=== PATIENT | female | born 1990 | race African-American/Black ===

== ENCOUNTER 2020-02-20 11:30 | Emergency (ER) | payer OTHER, SELFPAY ==
[2020-02-20 11:42] VITALS: BP 131/96; PULSE 101; RESP 14; TEMP 36.3; O2SAT 100
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
== END 2020-02-20 13:00 | disposition home or self-care (01) ==
LOC: ANHED 12:50
PROVIDERS: Emergency Provider Emergency Medicine
DX: T14.8XXA Other injury of unspecified body region, initial encounter (principal); V43.52XA Car driver injured in collision with other type car in traffic accident, initial encounter
CPT/HCPCS: 99282

== ENCOUNTER 2021-09-13 09:17 | Emergency (ER) | payer OTHER, SELFPAY ==
--- NOTE | ~2021-09-13 | XR_ITS ---
EXAMINATION: XR chest 2V DATE: 09/13/2021 09:43 INDICATION: Shortness of breath. Chest pain. TECHNIQUE: PA and lateral views of the chest were obtained. COMPARISON: None FINDINGS: The lungs are clear with no focal airspace opacities, pulmonary edema, pleural effusion or pneumothor ax. The cardiomediastinal silhouette is normal. Visualized bones and soft tissues are unremarkable. IMPRESSION: 1. Normal chest radiograph. Reviewed, dictated and finalized at location B. IMPRESSION: 1. Normal chest radiograph.
[2021-09-13 09:22] VITALS: BP 137/95; PULSE 95; RESP 20; O2SAT 100
--- NOTE | 2021-09-13 09:26 | ECG_ITS ---
Measurements Intervals [place] Rate: 95 P: 74 CT: 171 QRS: 92 QRSD: 92 T: 51 QT: 357 QTc: 449 Interpretive Statements SINUS RHYTHM BORDERLINE RIGHT AXIS DEVIATION [QRS AXIS > 90] NO PREVIOUS ECG AVAILABLE FOR COMPARISON Electronically Signed On 09-13-2021 16:47:01 CDT by Mel Washington M.D.
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
[2021-09-13] MEDS: SODIUM CHLORIDE 0.9% IV 1,000 ML 999 ML IV CONT (09:52)
[2021-09-13 10:01] LABS: Basophils Percent Auto 0.4 % (0.2-1.2); Eosinophils Absolute Auto 0.1 K/mm3 (0-0.3); Eosinophils Percent Auto 2.6 % (0-4.4); Hematocrit 39.8 % (37.0-47.0); Hemoglobin 12.8 g/dL (12.0-15.0); Immature Granulocyte Absolute 0.01 K/mm3 (0.00-0.031); Immature Granulocyte Percent A 0.2 % (0-0.5); Lymphocytes Absolute Auto 2.24 K/mm3 (0.9-3.2); Mean Corpuscular HGB Conc 32.2 g/dl (32-36); Mean Corpuscular Hemoglobin 26.1 pg (26-34); Mean Corpuscular Volume 81.1 fl (80-100); Mean Platelet Volume 10.5 fl (7.4-10.4); Monocytes Absolute Auto 0.3 K/mm3 (0.1-0.6); Neutrophils Absolute Auto 1.9 K/mm3 (1.3-6.7); Neutrophils Percent Auto 40.8 % (45.5-73.1); Platelet Count Result 211 k/mm3 (150-375); Red Blood Count 4.91 M/mm3 (4.2-5.4); Red Cell Distribution Width 13.7 % (11.5-14.5); White Blood Count 4.6 K/mm3 (4.5-10.0)
[2021-09-13 10:15] LABS: Alanine Aminotransferase 15 U/L (4-35); Albumin Level 4.7 g/dL (3.5-5.1); Alkaline Phosphatase 54 U/L (38-126); Anion Gap 9 mmol/L (8-16); Aspartate Amino Transferase 35 U/L (14-36); Bilirubin,Total 0.4 mg/dL (0.2-1.3); Blood Urea Nitrogen 15 mg/dL (7-17); Carbon Dioxide 25 mmol/L (22-30); Chloride 102 mmol/L (98-107); Estimated CRCL calculation 87 ml/min; Estimated Glomerular Filt Rate > 60; Glucose 87 mg/dL (65-110); Magnesium 1.8 mg/dL (1.6-2.3); Potassium 3.9 mmol/L (3.4-5.0); Sodium 136 mmol/L (137-145)
[2021-09-13 10:18] LABS: Add Urine Microscopic? YES; Appearance Urine Cloudy (Clear); Bilirubin Urine Negative (Negative); Blood Urine Negative (Negative); Color Urine Yellow (Yellow); Glucose Urine UA Negative (Negative); Ketones Urine Negative (Negative); Leukocyte Esterase Ur Trace LEU/UL (Negative); Mucus Urine Rare /lpf; Nitrate Urine Negative (Negative); Protein Urine Negative (Negative); Specific Grav Ur 1.024 (1.001-1.035); Squamous Epithelial Cell Urine Many /hpf (Few); Urobilinogen Urine Negative mg/dL (<2.0)
[2021-09-13 10:22] LABS: Troponin I < 0.012 ng/mL (0.000-0.034)
[2021-09-13 10:50] LABS: D Dimer < 0.22 ug/mL (<0.48)
[2021-09-13 11:35] VITALS: BP 123/80; PULSE 78; RESP 18; O2SAT 98
== END 2021-09-13 11:36 | disposition home or self-care (01) ==
PROVIDERS: Emergency Provider Nurse Practitioner Family
DX: R06.02 Shortness of breath (principal)
CPT/HCPCS: 36415; 71046; 80053; 81001; 83735; 84484; 85025; 85380; 87086; 93005; 96360; 96361; 99284; J7030

== ENCOUNTER 2023-10-25 12:42 | Outpatient (CLI) | payer OTHER, SELFPAY ==
[2023-10-25 19:13] LABS: Basophils Percent Auto 0.7 % (0.2-1.2); Eosinophils Absolute Auto 0.1 K/mm3 (0-0.3); Eosinophils Percent Auto 1.7 % (0-4.4); Hemoglobin 12.2 g/dL (12.0-15.0); Immature Granulocyte Absolute 0.01 K/mm3 (0.00-0.031); Immature Granulocyte Percent A 0.2 % (0-0.5); Lymphocytes Absolute Auto 1.99 K/mm3 (0.9-3.2); Lymphocytes Percent Auto 48.3 % (18.3-44.2); Mean Corpuscular HGB Conc 31.3 g/dl (32-36); Mean Corpuscular Hemoglobin 25.7 pg (26-34); Mean Corpuscular Volume 82.3 fl (80-100); Mean Platelet Volume 11.2 fl (7.4-10.4); Monocytes Absolute Auto 0.3 K/mm3 (0.1-0.6); Neutrophils Absolute Auto 1.7 K/mm3 (1.3-6.7); Neutrophils Percent Auto 41.1 % (45.5-73.1); Platelet Count Result 234 k/mm3 (150-375); Red Blood Count 4.74 M/mm3 (4.2-5.4); Red Cell Distribution Width 13.8 % (11.5-14.5); White Blood Count 4.1 K/mm3 (4.5-10.0)
[2023-10-25 19:47] LABS: Alanine Aminotransferase 18 U/L (6-35); Albumin Level 4.3 g/dL (3.5-5.1); Alkaline Phosphatase 60 U/L (38-126); Anion Gap 4 mmol/L (4-12); Aspartate Amino Transferase 30 U/L (14-36); Bilirubin,Total 0.4 mg/dL (0.2-1.3); Blood Urea Nitrogen 9 mg/dL (7-17); Calcium 9.2 mg/dL (8.4-10.2); Carbon Dioxide 27 mmol/L (22-30); Chloride 106 mmol/L (98-107); Cholesterol 182 mg/dL (0-200); Estimated Glomerular Filt Rate > 60; Glucose 95 mg/dL (65-110); HDL Direct 72 mg/dL; Potassium 4.3 mmol/L (3.4-5.0); Sodium 137 mmol/L (137-145); Triglycerides 67 mg/dL (<150)
[2023-10-25 19:58] LABS: LDL Cholesterol Direct 80 mg/dL
== END 2023-10-25 12:43 | disposition home or self-care (01) ==
LOC: ANHGOSHLAB 12:43
PROVIDERS: PCP Internal Medicine; Visit Provider Nurse Practitioner
DX: Z13.228 Encounter for screening for other metabolic disorders (principal); Z13.220 Encounter for screening for lipoid disorders
CPT/HCPCS: 36415; 80053; 80061; 85025

== ENCOUNTER 2024-07-24 09:15 | Outpatient (CLI) | payer OTHER, SELFPAY ==
--- NOTE | ~2024-07-24 | XR_ITS ---
EXAMINATION: XR chest 2V DATE: 07/24/2024 09:32 INDICATION: Dyspnea, unspecified. TECHNIQUE: Frontal and lateral views of the chest were obtained. COMPARISON: Chest 2 views 09/13/2021 FINDINGS: There is no pneumonia, pleural effusion, or pneumothorax. The heart size is normal. IMPRESSION: 1. No acute cardiopulmonary disease. Reviewed, dictated and finalized at location A. 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
== END 2024-07-24 09:16 | disposition home or self-care (01) ==
PROVIDERS: PCP Nurse Practitioner; Visit Provider Nurse Practitioner
DX: R06.00 Dyspnea, unspecified (principal)
CPT/HCPCS: 71046

== ENCOUNTER 2024-09-03 14:03 | Outpatient (CLI) | payer OTHER, SELFPAY ==
--- NOTE | ~2024-09-03 | XR_ITS ---
XR shoulder RT min 2V 09/03/2024 14:25 Indication: Right shoulder pain Procedure: 4 views right shoulder Comparison: No prior studies for comparison. Findings: There is anatomic alignment. No fracture, subluxation or dislocation. No soft tissue abnorm ality. No foreign bodies. Impression: 1: No significant bone or joint abnormality. Reviewed, dictated and finalized at location A. Impression: 1: No significant bone or joint abnormality.
--- NOTE | ~2024-09-03 | XR_ITS ---
XR cervical spine min 6V 09/03/2024 14:25 Indication: Cervical spine pain. Radiculopathy. Procedure: 8 views of the cervical spine Comparison: No prior studies for comparison. Findings: There is reversal of cervical lordosis in neutral position, likely due to muscle spasm. Rudolph tebral body heights are maintained. No significant disc narrowing. No alteration of alignment with fl exion/extension. No evidence for perched facet. No significant degenerative change. Impression: 1: No significant abnormality of the cervical spine. Reviewed, dictated and finalized at location A. Impression: 1: No significant abnormality of the cervical spine.
== END 2024-09-03 14:04 | disposition home or self-care (01) ==
PROVIDERS: PCP Nurse Practitioner; Visit Provider Nurse Practitioner
DX: M25.511 Pain in right shoulder (principal); G89.29 Other chronic pain; M54.12 Radiculopathy, cervical region
CPT/HCPCS: 72052; 73030

== ENCOUNTER 2024-10-30 09:08 | Outpatient (CLI) | payer OTHER, SELFPAY ==
[2024-10-30 11:43] LABS: Basophils Percent Auto 0.4 % (0.2-1.2); Eosinophils Absolute Auto 0.1 K/mm3 (0-0.3); Eosinophils Percent Auto 1.8 % (0-4.4); Hematocrit 38.9 % (37.0-47.0); Hemoglobin 12.5 g/dL (12.0-15.0); Immature Granulocyte Absolute 0.02 K/mm3 (0.00-0.031); Immature Granulocyte Percent A 0.4 % (0-0.5); Lymphocytes Percent Auto 44.1 % (18.3-44.2); Mean Corpuscular HGB Conc 32.1 g/dl (32-36); Mean Corpuscular Hemoglobin 26.5 pg (26-34); Mean Corpuscular Volume 82.4 fl (80-100); Mean Platelet Volume 11.9 fl (7.4-10.4); Monocytes Absolute Auto 0.5 K/mm3 (0.1-0.6); Monocytes Percent Auto 9.2 % (2.6-8.5); Neutrophils Absolute Auto 2.2 K/mm3 (1.3-6.7); Neutrophils Percent Auto 44.1 % (45.5-73.1); Platelet Count Result 227 k/mm3 (150-375); Red Blood Count 4.72 M/mm3 (4.2-5.4); Red Cell Distribution Width 13.9 % (11.5-14.5)
[2024-10-30 11:57] LABS: Alanine Aminotransferase 20 U/L (6-35); Albumin Level 4.4 g/dL (3.5-5.1); Alkaline Phosphatase 39 U/L (38-126); Anion Gap 9 mmol/L (4-12); Aspartate Amino Transferase 39 U/L (14-36); Bilirubin,Total 0.3 mg/dL (0.2-1.3); Blood Urea Nitrogen 8 mg/dL (7-17); Calcium 9.3 mg/dL (8.4-10.2); Carbon Dioxide 24 mmol/L (22-30); Chloride 106 mmol/L (98-107); Cholesterol 174 mg/dL (0-200); Estimated Glomerular Filt Rate > 60; Glucose 95 mg/dL (65-110); HDL Direct 66 mg/dL; Potassium 4.8 mmol/L (3.4-5.0); Sodium 139 mmol/L (137-145); Triglycerides 77 mg/dL (<150)
[2024-10-30 12:08] LABS: LDL Cholesterol Direct 62 mg/dL
== END 2024-10-30 09:09 | disposition home or self-care (01) ==
LOC: ANHGOSHLAB 09:09
PROVIDERS: PCP Nurse Practitioner; Visit Provider Nurse Practitioner
DX: Z13.220 Encounter for screening for lipoid disorders (principal); Z13.228 Encounter for screening for other metabolic disorders
CPT/HCPCS: 36415; 80053; 80061; 85025

== ENCOUNTER 2025-03-12 12:15 | Emergency (ER) | payer OTHER, SELFPAY ==
--- NOTE | ~2025-03-12 | US_ITS ---
EXAMINATION: US OB <=14 wk fetus w TV, 03/12/2025 16:00 CDT HISTORY: vaginal bleeding/ early Comparison: None Technique: Arzate-scale and color Doppler images were obtained FINDINGS: Uterus anteverted 8.2 x 4.5 x 4 cm, within the uterine fundus towards the right probable fibroid 3.7 x 2.9 cm. Endometrium 4 mm, there is no intrauterine gestational sac identified. Right ovary 2.4 x 2.5 x 1.7 cm, no adnexal mass, normal flow. Left ovary 2.1 x 2.2 x 2.2 cm, no adnexal mass, normal flow. Minimal free fluid. IMPRESSION: There is no intrauterine gestational sac identified. No adnexal mass to suggest ectopic although this cannot be excluded. Serial beta-hCG and follow-up is recommended Reviewed, dictated and finalized at location P. IMPRESSION: There is no intrauterine gestational sac identified. No adnexal mas s to suggest ectopic although this cannot be excluded. Serial beta-hC G and follow-up is recommended
--- OUTSIDE RECORDS SUMMARY | 2025-03-12 12:18 | XMS_ITS | Clinical Summary ---
Author Organization [facility] Address [facility] [place] [address] Care Team Providers Care Shooter Helper Name Role Phone Krystina Pathak MD Primary Care Provider [phone] Allergies Active Allergy Reactions Criticality Noted Date Comments Mushrooms Itching,Rash,Swelling Low 08/12/2021 Medications No known medications Active Problems No known active problems Immunizations Immunization Administration Dates Next Due MMR (MMRII) 08/27/2014,07/22/2014 Td, Adsorbed, Preservative F ree, Adult Use, Lf Unspecified 07/22/2014 Tdap (Adacel) 08/12/2021 Social History Tobacco Use Types Packs/Day Years Used Date Smoking Tobacco: Never Smokeless Tobacco: Never PHQ-2 Answer Date Recorded PHQ-2 Score - If the patient scores above 3, please move on to questions 3-9 0 08/12/2021 Comments No Sex and Gender Information Value Date Recorded Sex Assigned at Not on file Legal Sex Female 1:52 PM CDT Gender Identity Not on file Sexual Orientation Not on file Last Filed Vital Signs Vital Sign Reading Time Taken Comments Blood Pressure 113/76 08/12/2021 2:19 PM LEAD DATABASE ADMINISTRATOR Pulse 89 08/12/2021 2:19 PM LEAD DATABASE ADMINISTRATOR Temperature 36.7 C (98 F) 08/12/2021 2:19 PM LEAD DATABASE ADMINISTRATOR Respiratory Rate - - Oxygen Saturation 100% 08/12/2021 2:19 PM LEAD DATABASE ADMINISTRATOR Inhaled Oxygen Concentration - - Weight 67.6 kg (149 lb) 08/12/2021 2:19 PM LEAD DATABASE ADMINISTRATOR Height 152.4 cm (5') 08/12/2021 2:19 PM LEAD DATABASE ADMINISTRATOR Body Mass Index 29.1 08/12/2021 2:19 PM LEAD DATABASE ADMINISTRATOR Plan of Treatment Health Maintenance Due Date Last Done Comments Cervical Cancer Screening Pa p Smear (Age 30 to 64) Every 3 Years 1992 Hepatitis B Vaccines (1 of 3 - 19+ 3-dose series) 12/13/2011 HPV Vaccines (1 - 3-dose SCD M series) 12/13/2019 Annual Physical 08/12/2022 08/12/2021 Cervical Cancer Screening Pa p with HPV Testing (Age 30 to 64) Every 5 Years 2022 Cervical Cancer Screening wi th HPV 2022 COVID-19 Vaccine (2 - 2024-2 6 season) 2025 02/10/2021 DTaP, Tdap and Td Vaccines ( 2 - Td or Tdap) 08/13/2031 08/12/2021, 07/22/2014 Hepatitis C Completed 08/26/2021 Meningococcal B Vaccine Aged Out No l onger eligible based on patient's age to complete this topic Meningococcal Vaccine Aged Out No bossman amanda eligible based on patient's age to complete this topic Pneumococcal Vaccine: Pediatrics (0 to 5 Years) and At-Risk Patients (6 to 49 Years) Aged Out No longer eligible b ased on patient's age to complete this topic RSV Immunizations Under 20 Months Aged Out No longer eligible b ased on patient's age to complete this topic Procedures Procedure Name Priority Date/Time Associated Diagnosis Comments HEPATITIS C ANTIBODY Routine 08/26/2021 9:01 AM CDT Encounter for hepatitis C screening test for low risk patient from Last 3 Months or Most Recently Relevant to Health Maintenance Results * HEPATITIS C ANTIBODY (08/26/2021 9:01 AM CDT) HEPATITIS C AB NON-REACTI VE NON-REACT BARRY 08/26/2021 10:56 PM CDT [facility] Comment: ANTIBODIES TO HCV NOT DETECTED. DOES NOT EXCLUDE THE POSSIBILITY OF EXPOSURE TO HCV. 08/26/2021 9:01 AM CDT Krystina Pathak MD LABORATORY Final Result [facility] [address] [place] [id number], [id number] from Last 3 Months or Most Recently Relevant to Health Maintenance Insurance [facility] Care Teams Shooter Helper Relationship Specialty Start Date End Date Krystina Pathak MD [facility] [place] [address] PCP - General FAMILY PRACTICE 08/12/21
--- OUTSIDE RECORDS SUMMARY | 2025-03-12 12:19 | XMS_ITS | Encounter Summary ---
Author Organization [facility] Address [facility] [place] [address] Care Team Providers Care Resource Development Manager Name Role Phone Marcus Allen MD Primary Care Provider [phone] Krystina Pathak MD Primary Care Provider [phone] Encounter Details Date Type Department Care Team (Late st Contact Info) Description 10/01/2019 [facility] Patient Accounts [address] [place] [address] [facility] patient account balance Social History Tobacco Use Types Packs/Day Years Used Date Smoking Tobacco: Never Assessed Comments Unknown Sex and Gender Information Value Date Recorded Sex Assigned at Not on file Legal Sex Female 1:52 PM CDT Gender Identity Not on file Sexual Orientation Not on file documented as of this encounter Plan of Treatment Not on file documented as of this encounter Visit Diagnoses Not on filedocumented in this encounter Care Teams Resource Development Manager Relationship Specialty Start Date End Date Marcus Allen MD [address] [place] [address] [address] [place] [address] PCP - General FAMILY PRACTICE 04/11/19 08/11/21 Krystina Pathak MD [address] [place] [id number] PCP - General FAMILY PRACTICE 08/12/21 documented as of this encounter
[2025-03-12 12:34] VITALS: BP 130/88; PULSE 83; RESP 18; TEMP 36.1; O2SAT 100
--- OUTSIDE RECORDS SUMMARY | 2025-03-12 14:02 | XMS_ITS | Encounter Summary ---
Author Organization [facility] Address [facility] [place] [address] Care Team Providers Care Manager Biostatistics Name Role Phone Marcus Allen MD Primary Care Provider [phone] Krystina Pathak MD Primary Care Provider [phone] Encounter Details Date Type Department Care Team (Late st Contact Info) Description 10/01/2019 [facility][Note 3] Patient Accounts [address] [place] [address] [facility] patient account balance Social History [...] on filedocumented in this encounter Care Teams Manager Biostatistics Relationship Specialty Start Date End Date Marcus Allen MD [address] [place] [address] [address] [place] [address] PCP - General FAMILY PRACTICE 04/11/19 08/11/21 Krystina Pathak MD [address] [place] [id number] PCP - General FAMILY PRACTICE 08/12/21 documented as of this encounter
--- OUTSIDE RECORDS SUMMARY | 2025-03-12 14:02 | XMS_ITS | Clinical Summary ---
Author Organization [facility] Address [facility] [place] [address] Care Team Providers Care Call Box Wirer Name Role Phone Krystina Pathak MD Primary Care Provider [phone] Allergies Active Allergy Reactions Criticality Noted Date [...] Comments Blood Pressure 113/76 08/12/2021 2:19 PM GRAIN BLENDER Pulse 89 08/12/2021 2:19 PM GRAIN BLENDER Temperature 36.7 C (98 F) 08/12/2021 2:19 PM GRAIN BLENDER Respiratory Rate - - Oxygen Saturation 100% 08/12/2021 2:19 PM GRAIN BLENDER Inhaled Oxygen Concentration - - Weight 67.6 kg (149 lb) 08/12/2021 2:19 PM GRAIN BLENDER Height 152.4 cm (5') 08/12/2021 2:19 PM GRAIN BLENDER Body Mass Index 29.1 08/12/2021 2:19 PM GRAIN BLENDER Plan of Treatment Health Maintenance Due Date [...] VE NON-REACT BARRY 08/26/2021 10:[address] [facility] Comment: ANTIBODIES TO HCV NOT DETECTED. DOES NOT EXCLUDE THE POSSIBILITY OF EXPOSURE TO HCV. 08/26/2021 9:01 AM CDT Krystina Pathak MD LABORATORY Final Result [facility] [address] [place] [id number], [id number] from Last 3 Months or Most Recently Relevant to Health Maintenance Insurance [facility] Care Teams Call Box Wirer Relationship Specialty Start Date End Date Krystina Pathak MD [facility] [place] [address] PCP - General FAMILY PRACTICE 08/12/21
[2025-03-12 14:38] LABS: BEDSIDEPREGUCG Negative (Negative)
[2025-03-12 14:47] LABS: Hematocrit 40.6 % (37.0-47.0); Hemoglobin 12.5 g/dL (12.0-15.0); Immature Granulocyte Percent A 0.3 % (0-0.5); Lymphocytes Absolute Auto 1.54 K/mm3 (0.9-3.2); Mean Corpuscular HGB Conc 30.8 g/dl (32-36); Mean Corpuscular Hemoglobin 25.1 pg (26-34); Mean Corpuscular Volume 81.5 fl (80-100); Nucleated Red Blood Cells Absolute Auto 0.000 K/mm3 (0.0-0.012); Nucleated Red Blood Cells Perc 0.0 % (0.0-0.2); Platelet Count Result 236 k/mm3 (150-375); Red Blood Count 4.98 M/mm3 (4.2-5.4); White Blood Count 5.8 K/mm3 (4.5-10.0)
[2025-03-12 15:00] LABS: Alanine Aminotransferase 14 U/L (6-35); Albumin Level 4.5 g/dL (3.5-5.1); Alkaline Phosphatase 59 U/L (38-126); Anion Gap 9 mmol/L (4-12); Aspartate Amino Transferase 23 U/L (14-36); Bilirubin,Total 0.2 mg/dL (0.2-1.3); Blood Urea Nitrogen 9 mg/dL (7-17); Calcium 9.1 mg/dL (8.4-10.2); Carbon Dioxide 23 mmol/L (22-30); Chloride 105 mmol/L (98-107); Estimated CRCL calculation 90 ml/min; Estimated Glomerular Filt Rate > 60; Glucose 106 mg/dL (65-110); Potassium 4.5 mmol/L (3.4-5.0); Sodium 137 mmol/L (137-145); Total Protein 8.0 g/dL (6.3-8.2)
[2025-03-12 15:08] LABS: Add Urine Microscopic? YES; Appearance Urine Clear (Clear); Glucose Urine UA Negative (Negative); Leukocyte Esterase Ur 1+ LEU/UL (Negative); Need Manual Microscopic Reviewed; Nitrate Urine Negative (Negative); Non Pathogenic Casts 0-2; Specific Grav Ur 1.019 (1.001-1.035)
[2025-03-12 15:10] LABS: INR 1.0; Prothrombin Time 12.8 Seconds (11.1-14.7)
[2025-03-12 15:11] LABS: Partial Thromboplastin Time 23.1 Seconds (22.3-36.8)
--- NOTE | 2025-03-12 15:11 | ED.GENADULT ---
HPI - General Adult General Chief complaint: Vaginal Bleeding Stated complaint: vag bleeding, Time Seen by Provider: 03/12/25 13:49 History of Present Illness HPI narrative: Gianna Leon is a 34 y/o female whose LMP was Feb 03, she took a test yesterday and it was positive and she was spotting yesterday and started to have heavier vaginal bleeding today with abdominal crampaing and some low back pain. States she had some nausea this morning no vomiting Related Data Home Medications ?Medication ?Instructions ?Recorded ?Confirmed ?Last Taken ?Type multivitamin (Daily Multi-Vitamin 1 tablet PO DAILY 04/04/24 10/30/24 Unknown History tablet) Allergies Allergy/AdvReac Type Severity Reaction Status Date / Time No Known Allergies Allergy Verified 03/12/25 12:33 Review of Systems Review of Systems: All systems reviewed & are unremarkable except as noted in HPI and below PMFSH Past Medical History Medical History Right foot sprain Family History Family History Father Diabetes mellitus Mother Hypertension Grandparent Hypertension Social History Social History Smoking status: Never smoker Second hand tobacco smoke exposure: No Alcohol intake: never Substance use: never Do You Feel Safe in your Home?: Yes Lack of Transportation: No Lack of Food: Never True Current Housing: I Have Housing Concerned About Future Housing: No Difficulty Paying Gas/Electric Bills: No Difficulty Paying for Meds: No Currently Unemployed: No Education: Bachelor's Degree Difficulty w/ Childcare or Family Care: No Exam Narrative: GENERAL: Well-appearing, well-nourished, and in no acute distress. HEAD: Normocephalic, atraumatic. EYES: PERRLA and EOMI. ENT: Nares clear, no rhinorrhea or epistaxis. Mucous membranes moist. Oropharynx without tonsillar hypertrophy exudate or other lesions. NECK: Supple. No adenopathy or masses. No carotid bruits or JVD CHEST: Clear to auscultation. No respiratory distress. No wheezes rales or rhonchi HEART: Regular rate and rhythm. No murmur heard. Normal peripheral pulses. ABDOMEN: Soft, nontender, nondistended, normal active bowel sounds. EXTREMITIES: Normal range of motion. No edema. SKIN: Warm, dry, no rash. NEURO: No focal deficits. Alert and oriented x3. PSYCH: Normal mood and affect. Course Vital Signs Vital signs: Vital Signs Temperature 36.1 C L 03/12/25 12:34 Pulse Rate 83 03/12/25 12:34 Respiratory Rate 18 03/12/25 12:34 Blood Pressure 130/88 03/12/25 12:34 Pulse Oximetry 100 03/12/25 12:34 Oxygen Delivery Room Air 03/12/25 12:34 Temperature 36.1 C L 03/12/25 12:34 Pulse Rate 83 03/12/25 12:34 Respiratory Rate 18 03/12/25 12:34 Blood Pressure 130/88 03/12/25 12:34 Pulse Oximetry 100 03/12/25 12:34 Oxygen Delivery Room Air 03/12/25 12:34 Medical Decision Making MDM Narrative Medical decision making narrative: 34-year-old female who took a positive test yesterday and started to have spotting yesterday and bleeding today. Complains of lower abdominal cramping low back pain. Denies urinary symptoms. concern for ectopic, menses, threatened miscarriage plan to check labs and ultrasound pelvic CBC no leukocytosis, hemodynamically stable her coags unremarkable CMP unremarkable with UA 3+ blood urine is negative beta quant is a 7.15 Transvaginal ultrasound: There is no intrauterine gestational sac identified. No adnexal mass to suggest ectopic although this cannot be excluded. Serial beta-hCG and follow-up is recommended Patient updated on lab results and ultrasound findings. I let her know that her urine was negative here however she does have a very low beta quant in the the vaginal bleeding and possible early difficult to tell if this is truly a that will continue or if she is actively miscarrying being that she is at best around 4 weeks . For the ultrasound was not able to visualize an intrauterine gestational sac however it did not suggest an ectopic either likely because she is so early. I explained to her that she will need to call her OBGYN tomorrow to follow-up for repeat beta quant to see which direction this will go. However the latter now that the level that the beta quant was today is is likely not a viable . Better now the rest of an ectopic a and that if she does develop any new or worsening symptoms severe pain feeling like something isn't right then she is to return to the emergency room. She is agreeable to this plan denies anything further at this time. Medical Records Medical records reviewed: Yes I reviewed the external patient's medical records. Vital Signs Vital Signs: Vital Signs Temperature 36.1 C L 03/12/25 12:34 Pulse Rate 83 03/12/25 12:34 Respiratory Rate 18 03/12/25 12:34 Blood Pressure 130/88 03/12/25 12:34 Pulse Oximetry 100 03/12/25 12:34 Oxygen Delivery Room Air 03/12/25 12:34 Temperature 36.1 C L 03/12/25 12:34 Pulse Rate 83 03/12/25 12:34 Respiratory Rate 18 03/12/25 12:34 Blood Pressure 130/88 03/12/25 12:34 Pulse Oximetry 100 03/12/25 12:34 Oxygen Delivery Room Air 03/12/25 12:34 Vitals reviewed Lab Data Lab results reviewed: Yes I reviewed the patient's lab results. 03/12/25 14:35 03/12/25 14:36 Labs: Lab Results 03/12/25 03/12/25 03/12/25 Range/Units 14:15 14:35 14:36 WBC 5.8 (4.5-10.0) K/mm3 RBC 4.98 (4.2-5.4) M/mm3 Hgb 12.5 (12.0-15.0) g/dL Hct 40.6 (37.0-47.0) % MCV 81.5 (80-100) fl MCH 25.1 L (26-34) pg MCHC 30.8 L (32-36) g/dl RDW 13.9 (11.5-14.5) % Plt Count 236 (150-375) k/mm3 MPV 10.9 H (7.4-10.4) fl Immature Gran % (Auto) 0.3 (0-0.5) % Neut % (Auto) 66.0 (45.5-73.1) % Lymph % (Auto) 26.4 (18.3-44.2) % [place] % (Auto) 6.3 (2.6-8.5) % Eos % (Auto) 0.7 (0-4.4) % Baso % (Auto) 0.3 (0.2-1.2) % Lymph # (Auto) 1.54 (0.9-3.2) K/mm3 [place] # (Auto) 0.4 (0.1-0.6) K/mm3 Eos # (Auto) 0.0 (0-0.3) K/mm3 Baso # (Auto) 0.0 (0.0-0.1) K/mm3 Abs Immat Gran (auto) 0.02 (0.00-0.031) K/mm3 Absolute Neuts (auto) 3.8 (1.3-6.7) K/mm3 Absolute Nucleated RBC 0.000 (0.0-0.012) K/mm3 Nucleated RBC % 0.0 (0.0-0.2) % PT 12.8 (11.1-14.7) Seconds INR 1.0 APTT 23.1 (22.3-36.8) Seconds Sodium 137 (137-145) mmol/L Potassium 4.5 (3.4-5.0) mmol/L Chloride 105 (98-107) mmol/L Carbon Dioxide 23 (22-30) mmol/L Anion Gap 9 (4-12) mmol/L BUN 9 (7-17) mg/dL Creatinine 0.69 L (0.7-1.0) mg/dL Estim Creat Clear Calc 90 ml/min Estimated GFR > 60 (59 - ) Glucose 106 (65-110) mg/dL Calcium 9.1 (8.4-10.2) mg/dL Total Bilirubin 0.2 (0.2-1.3) mg/dL AST 23 (14-36) U/L ALT 14 (6-35) U/L Alkaline Phosphatase 59 (38-126) U/L Total Protein 8.0 (6.3-8.2) g/dL Albumin 4.5 (3.5-5.1) g/dL Beta HCG, Quant 7.15 mIU/ML Urine Color Yellow (Yellow) Urine Appearance Clear (Clear) Urine pH 5.0 (5.0-9.0) Ur Specific [place] 1.019 (1.001-1.035) Urine Protein Negative (Negative) mg/dL Urine Glucose (UA) Negative (Negative) mg/dL Urine Ketones Negative (Negative) mg/dL Ur Blood (Man) 3+ H (Negative) Urine Nitrate Negative (Negative) Urine Bilirubin Negative (Negative) Urine Urobilinogen 0.2 (<2.0) mg/dL Add Ur Microanalysis Reviewed Leukocyte Esterase Rfl 1+ H (Negative) NOBLE/UL Urine RBC 6-10 H (0-2) /hpf Urine WBC 0-5 (0-3) /hpf Ur Squamous Epith Cells None seen (Few) /hpf Urine Bacteria None seen /hpf Urine Casts 0-2 POC Urine HCG, Qual Negative (Negative) Imaging Data Radiologist's impression: Impressions Obstetrics Ultrasound 03/12/25 17:16 IMPRESSION: There is no intrauterine gestational sac identified. No adnexal mass to suggest ectopic although this cannot be excluded. Serial beta-hCG and follow-up is recommended Discharge Plan Discharge Clinical Impression: Vaginal bleeding Patient Disposition: Home Condition: Stable Instructions: Antibiotic Form, Threatened Miscarriage (ED), Abnormal (Dysfunctional) Uterine Bleeding (ED) Additional Instructions: Continue to take Tylenol as needed Please call your OBGYN tomorrow to make a follow up appointment to have your BetaQuant repeated in the next 2 days Please continue to monitor your symptoms Stay hydrated If you should develop any new or worsening symptoms return to the ER. Patient Language: Polish Prescriptions: No Action triamcinolone acetonide 0.1 % cream 1 applic topical BID Qty: 30 0RF multivitamin [Daily Multi-Vitamin] Tablet 1 tablet PO DAILY cyclobenzaprine 10 mg tablet 10 mg PO BID PRN (Reason: muscle spasm) Qty: 20 0RF Follow-up/Referrals: Tania Molina NP [Primary Care Provider, Internal Medicine] - 1 Week Stand Alone Forms: Work/School Release IP Time of Disposition: 17:28
[2025-03-12 15:17] LABS: Beta HCG Quantitative 7.15 mIU/ML
[2025-03-12] MEDS: ACETAMINOPHEN 500 MG TABLET 1000 MG PO (18:12)
== END 2025-03-12 18:04 | disposition home or self-care (01) ==
PROVIDERS: Emergency Provider Nurse Practitioner Family; PCP Nurse Practitioner
DX: O20.9 Hemorrhage in early pregnancy, unspecified (principal); Z3A.01 Less than 8 weeks gestation of pregnancy
CPT/HCPCS: 36415; 76801; 76817; 80053; 81001; 81025; 84702; 85025; 85610; 85730; 87086; 99284; A9270

== ENCOUNTER 2025-03-16 09:56 | Outpatient (CLI) | payer OTHER, SELFPAY ==
--- OUTSIDE RECORDS SUMMARY | 2025-03-16 11:01 | XMS_ITS | Encounter Summary ---
Author Organization [facility] Address [facility] [place] [address] Care Team Providers Care Data Processing Equipment Repairer Name Role Phone Marcus Allen MD Primary Care Provider [phone] Krystina Pathak MD Primary Care Provider [phone] Encounter Details Date Type Department Care Team (Late st Contact Info) Description 10/01/2019 [facility] Patient Accounts [address] [place] [address] [facility] Social History Tobacco [...] on filedocumented in this encounter Care Teams Data Processing Equipment Repairer Relationship Specialty Start Date End Date Marcus Allen MD [address] [facility] [address] [place] [address] PCP - General FAMILY PRACTICE 04/11/19 08/11/21 Krystina Pathak MD [address] [place] [id number] PCP - General FAMILY PRACTICE 08/12/21 documented as of this encounter
--- OUTSIDE RECORDS SUMMARY | 2025-03-16 11:01 | XMS_ITS | Clinical Summary ---
Author Organization [facility] Address [facility] [place] [address] Care Team Providers Care Inclusion Internship Name Role Phone Krystina Pathak MD Primary Care Provider [phone] Allergies Active Allergy Reactions Criticality Noted Date [...] Comments Blood Pressure 113/76 08/12/2021 2:19 PM AGENCY LEGAL COUNSEL Pulse 89 08/12/2021 2:19 PM AGENCY LEGAL COUNSEL Temperature 36.7 C (98 F) 08/12/2021 2:19 PM AGENCY LEGAL COUNSEL Respiratory Rate - - Oxygen Saturation 100% 08/12/2021 2:19 PM AGENCY LEGAL COUNSEL Inhaled Oxygen Concentration - - Weight 67.6 kg (149 lb) 08/12/2021 2:19 PM AGENCY LEGAL COUNSEL Height 152.4 cm (5') 08/12/2021 2:19 PM AGENCY LEGAL COUNSEL Body Mass Index 29.1 08/12/2021 2:19 PM AGENCY LEGAL COUNSEL Plan of Treatment Health Maintenance Due Date [...] VE NON-REACT BARRY 08/26/2021 10:56 PM CDT [facility] Comment: ANTIBODIES TO HCV NOT DETECTED. DOES NOT EXCLUDE THE POSSIBILITY OF EXPOSURE TO HCV. 08/26/2021 9:01 AM CDT Krystina Pathak MD LABORATORY Final Result [facility] [address] [place] [id number], [id number] from Last 3 Months or Most Recently Relevant to Health Maintenance Insurance [facility] Care Teams Inclusion Internship Relationship Specialty Start Date End Date Krystina Pathak MD [facility] [place] [address] PCP - General FAMILY PRACTICE 08/12/21
[2025-03-16 11:06] LABS: Beta HCG Quantitative < 2.39 mIU/ML
== END 2025-03-16 09:57 | disposition home or self-care (01) ==
LOC: ANHLAB 09:57
PROVIDERS: PCP Nurse Practitioner; Visit Provider Nurse Practitioner Family
DX: N93.9 Abnormal uterine and vaginal bleeding, unspecified (principal)
CPT/HCPCS: 36415; 84702; 86900; 86901